=== PATIENT | male | born 1970 | race African-American/Black ===

== ENCOUNTER 2018-02-03 20:13 | Emergency (ER) | payer MEDICAID, OTHER ==
[~2018-02-03] VITALS: Ht 190.5 cm; Wt 113.4 kg
[~2018-02-03 20:13] MED LIST: METHADONE10 MG/5 ML PO; NEURONTIN300 MG PO; VICODIN PO
[2018-02-03 20:25] VITALS: BP 156/108
[2018-02-03] MEDS ORDERED: Morphine Sulfate 4mg/ml Inj (IV/IM USE ONLY) IVP ONE (20:45)
[2018-02-03] MEDS ORDERED: Ketorolac 30mg Inj IV ONE (20:45)
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
[2018-02-03 21:00] LABS: ANION GAP 5 mmol/L (5-15); BLOOD UREA NITROGEN 16 mg/dL (7-18); CALCIUM 8.8 MG/DL (8.5-10.1); CARBON DIOXIDE 30 MMOL/L (21-32); CHLORIDE 108 MMOL/L (98-107); CREATININE 1.4 MG/DL (0.55-1.30); POTASSIUM 3.9 MMOL/L (3.5-5.1); SODIUM 143 MMOL/L (136-145)
[2018-02-03 21:05] LABS: BASOPHILS % (AUTO) 1.3 % (0.0-2.0); HEMATOCRIT 44.3 % (42.0-52.0); HEMOGLOBIN 13.9 G/DL (14.2-18.0); LYMPHOCYTES % (AUTO) 27.3 % (20.0-45.0); MEAN CORPUSCULAR VOLUME 78 FL (80-99); MONOCYTES % (AUTO) 7.7 % (1.0-10.0); NEUTROPHILS % (AUTO) 62.7 % (45.0-75.0); PLATELET COUNT 278 K/UL (150-450); RED BLOOD COUNT 5.69 M/UL (4.70-6.10); WHITE BLOOD COUNT 9.3 K/UL (4.8-10.8)
[2018-02-03 21:06] LABS: ALANINE AMINOTRANSFERASE 22 U/L (12-78); ALBUMIN 3.9 G/DL (3.4-5.0); ALBUMIN/GLOBULIN RATIO 0.9 (1.0-2.7); ALKALINE PHOSPHATASE 84 U/L (46-116); ASPARTATE AMINO TRANSFERASE 15 U/L (15-37); BILIRUBIN,TOTAL 0.4 MG/DL (0.2-1.0); CREATINE KINASE 265 U/L (26-308)
[2018-02-03] MEDS ORDERED: ROBAXIN500 MG PO (22:40)
[2018-02-03] MEDS ORDERED: IBUPROFEN600 MG ORAL (22:40)
[2018-02-03] MEDS ORDERED: GUAIFENESIN-CO118 M1 ORAL (22:40)
[2018-02-03] MEDS ORDERED: ZESTORETIC 20-1 EACH ORAL (22:48)
[2018-02-03] MEDS ORDERED: AMLODIPINE-ATO1 EAC4 ORAL (22:52)
[2018-02-03 23:04] VITALS: BP 156/102
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
== END 2018-02-03 23:04 | disposition home or self-care (01) ==
LOC: EMR 20:48
DX: S29.011A Strain of muscle and tendon of front wall of thorax, initial encounter (principal); J06.9 Acute upper respiratory infection, unspecified; I10 Essential (primary) hypertension; K57.90 Diverticulosis of intestine, part unspecified, without perforation or abscess without bleeding; X58.XXXA Exposure to other specified factors, initial encounter; Y92.9 Unspecified place or not applicable
CPT/HCPCS: 36415; 71045; 80053; 82550; 84484; 85025; 85610; 85730; 86710; 93005; 96361; 96374; 96375; 99284; J1885; J2270; J2405

== ENCOUNTER 2018-05-11 22:13 | Emergency (ER) | payer OTHER ==
[~2018-05-11] VITALS: Ht 190.5 cm; Wt 111.1 kg
[~2018-05-11 22:13] MED LIST changes: +AMLODIPINE-ATO1 EAC4 ORAL; +GUAIFENESIN-CO118 M1 ORAL; +IBUPROFEN600 MG ORAL; +ROBAXIN500 MG PO; +ZESTORETIC 20-1 EACH ORAL
[2018-05-11 22:34] VITALS: BP 178/107
--- NOTE | 2018-05-11 22:34 | NUR ---
ED Nurse Note: GENERALIZED RASH, ENTIRE BODY X 3 WEEKS, RED AND RAISED IN APPEARANCE, ITCHING.
[2018-05-11] MEDS ORDERED: HYDROCORTISONE28 G2 TP (22:50)
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
[2018-05-11] MEDS ORDERED: BACTRIM DS TAB1 EAC1 ORAL (22:55)
[2018-05-11 23:00] VITALS: BP 178/107
--- NOTE | 2018-05-11 23:01 | NUR ---
ER DISCHARGE NOTE: Patient is cleared to be discharged per ERMD, pt is aox4, on room air, with stable vital signs. pt was given dc and prescription instructions, pt was able to verbalize understanding, pt id band removed. pt is able to ambulate with steady gait. pt took all belongings.
== END 2018-05-11 23:00 | disposition home or self-care (01) ==
LOC: EMR 22:45
DX: L42 Pityriasis rosea (principal); I10 Essential (primary) hypertension
CPT/HCPCS: 99282